=== PATIENT | male | born 1955 | race Caucasian/White ===

== ENCOUNTER 2020-12-13 15:26 | Outpatient (CLI) | payer MEDICARE, SELFPAY ==
--- NOTE | 2020-12-13 15:34 | XR_ITS ---
WS: [id number] XR chest 2V* [id number] REASON FOR EXAM: cough rule out pneumonia FINDINGS: Previous sternotomy and coronary artery bypass surgery. The aorta is unremarkable. Heart size is normal. Calcified granulomatous changes in both hemithoraces. Slightly asymmetric apical pleural thickening. No active pulmonary parenchymal or pleural disease. The hemidiaphragms are flattened which may indicate an element of obstructive lung disease. Mild degenerative spondylosis in the mid and lower thoracic spine. XR/XR chest 2V* [id number] IMPRESSION: Status post coronary bypass surgery. No acute abnormality. Possible obstructive lung disease.
== END 2020-12-13 15:27 | disposition home or self-care (01) ==
LOC: RAD 15:31
PROVIDERS: PCP Physician Assistant; Visit Provider Internal Medicine Pulmonary Disease
DX: R05 Cough (principal); Z95.1 Presence of aortocoronary bypass graft
CPT/HCPCS: 71046

== ENCOUNTER → 2021-01-18 13:31 | Outpatient (BNVA) | payer MEDICARE, SELFPAY | PROVIDERS: PCP Physician Assistant; Visit Provider Internal Medicine Pulmonary Disease | DX: Z01.812 Encounter for preprocedural laboratory examination (principal); Z20.822 Contact with and (suspected) exposure to COVID-19 | CPT/HCPCS: 87635 ==

== ENCOUNTER 2021-02-01 09:27 | Outpatient (CLI) | payer MEDICARE, SELFPAY ==
--- NOTE | 2021-02-01 09:38 | CT_ITS ---
WS: [id number] CT CHEST WITHOUT INTRAVENOUS CONTRAST HISTORY: follow up on bilateral pulmonary nodules in chronic smoker TECHNIQUE: Contiguous 5 mm axial imaging performed on the thorax. Coronal and sagittal reformats are submitted. [facility] use at least one of these dose optimization techniques: automated exposure control; mA and/or kV adjustment per patient size (includes targeted exams where dose is matched to clinical indication); or iterative reconstruction. CONTRAST: None DLP: 907.25 mGycm COMPARISON: 12/13/2020 Lungs and central airway: Horizontal scar in the RIGHT upper lobe. There is a pleural-based 5 mm nodu le in the superior posterior RIGHT lower lobe. No additional nodules or masses. Pleura: Mild pleural thickening at the RIGHT costophrenic angle. Heart and pericardium: Prior CABG. Heart size is normal. No pericardial effusion. Mediastinum and mac: No mediastinum or hilar adenopathy. Vessels: Mild atherosclerosis aorta with no aneurysm. LEFT vertebral artery arises directly from the aorta. Normal size pulmonary artery. Chest wall and lower neck: Prior CABG. Upper abdomen: Mild perinephric stranding. Hepatic steatosis. Osseous structures: Moderate thoracic spondylosis. CT/CT chest wo con [id number] IMPRESSION: 1. No pulmonary mass or pneumonia. 2. Focal scarring at the RIGHT lung base resulting in blunting of the costophr enic angle. 3. 5 mm noncalcified pulmonary nodule in the superior segment RIGHT lower lobe . Indeterminate solid pulmonary nodule measuring less than 6 mm. In a low-risk patient with a solid nodule <6 mm, recommend no follow-up. In a high-risk patie nt, CT at 12 months is optional with stronger consideration if there is suspici ous nodule morphology and/or upper lobe location. Ellie H, et al. Guidelines for Management of Incidental Pulmonary Nodules De tected on CT Images: From the Fleischner Society 2017. Radiology. 2017 Ed;284( 1):228-243.
== END 2021-02-01 09:28 | disposition home or self-care (01) ==
PROVIDERS: PCP Physician Assistant; Visit Provider Internal Medicine Pulmonary Disease
DX: R91.8 Other nonspecific abnormal finding of lung field (principal); F17.210 Nicotine dependence, cigarettes, uncomplicated
CPT/HCPCS: 71250

== ENCOUNTER → 2021-02-02 11:06 | Outpatient (BNVA) | payer MEDICARE, SELFPAY | PROVIDERS: PCP Physician Assistant; Visit Provider Internal Medicine Pulmonary Disease | DX: Z20.822 Contact with and (suspected) exposure to COVID-19 (principal); Z01.812 Encounter for preprocedural laboratory examination | CPT/HCPCS: 87635 ==

== ENCOUNTER 2021-02-08 10:10 | Outpatient (CLI) | payer MEDICARE, SELFPAY ==
--- NOTE | 2021-02-08 13:46 | PFTS_ITS ---
Date of Study:02/08/21 Date of Dictation: MECHANICS: Forced vital capacity (FVC) is reduced. Forced expiratory volume in one second (FEV1) is reduced. FEV1/FVC is reduced. FLOW VOLUME LOOP: Reduced flow at all lung volumes with scooping. LUNG VOLUMES: Total lung capacity (TLC) is normal. Residual volume (RV) is increased. DIFFUSING CAPACITY FOR CARBON MONOXIDE: Moderately reduced. INTERPRETATION: The pulmonary function tests are consistent with severe airflow obstruction. There is no significant postbronchodilator response. Lung volumes are consistent with air trapping. Gas exchange (DLCO) is moderately reduced. MTDD
== END 2021-02-08 10:11 | disposition home or self-care (01) ==
LOC: RT 10:12
PROVIDERS: PCP Physician Assistant; Visit Provider Internal Medicine Pulmonary Disease
DX: R91.8 Other nonspecific abnormal finding of lung field (principal); J44.9 Chronic obstructive pulmonary disease, unspecified
CPT/HCPCS: 94060; 94618; 94726; 94729; J7611

== ENCOUNTER → 2022-10-31 09:01 | Outpatient (BNVA) | payer OTHER, SELFPAY | PROVIDERS: PCP Nurse Practitioner Family; Referring Provider Nurse Practitioner Family; Visit Provider Psychiatry & Neurology Neurology | DX: G25.0 Essential tremor; I25.10 Atherosclerotic heart disease of native coronary artery without angina pectoris; Z95.5 Presence of coronary angioplasty implant and graft; J44.9 Chronic obstructive pulmonary disease, unspecified; F17.210 Nicotine dependence, cigarettes, uncomplicated; G47.33 Obstructive sleep apnea (adult) (pediatric) | CPT/HCPCS: 99203 ==

== ENCOUNTER → 2022-10-31 09:01 | Outpatient (BNVA) | payer OTHER, SELFPAY | PROVIDERS: PCP Nurse Practitioner Family; Referring Provider Nurse Practitioner Family; Visit Provider Psychiatry & Neurology Neurology | DX: R25.1 Tremor, unspecified (principal); E05.00 Thyrotoxicosis with diffuse goiter without thyrotoxic crisis or storm; G25.0 Essential tremor; Z79.899 Other long term (current) drug therapy | CPT/HCPCS: 80184; 82306; 82607; 82746; 83735; 83921 ==

== ENCOUNTER 2022-11-22 14:22 | Outpatient (CLI) | payer OTHER, SELFPAY ==
--- NOTE | 2022-11-22 15:15 | MR_ITS ---
WS: [id number] MRI BRAIN WITHOUT CONTRAST HISTORY: R25.1 - Tremor, unspecified COMPARISON: None available. TECHNIQUE: Diffusion imaging, multiplanar T1, T2 and FLAIR imaging obtained. No evidence for acute infarct or hemorrhage. Nation-white matter differentiation is normal. Mild bilateral symmetric atrophy. No significant small vessel ischemic disease or prior infarct. Symm etric hippocampal formations with no atrophy. Ventricles and extra-axial spaces are normal. No inferior displacement of cerebellar tonsils. The sella turcica and pituitary gland are unremarkabl e. Dural venous sinuses and [place] demonstrate no abnormality on this unenhanced studies. Paranasal sinuses: Clear. Mastoid air cells: Normal. Calvarium and scalp: Intact. IMPRESSION: 1. No acute diffusion abnormalities. No significant small vessel ischemic disease. 2. Mild bilateral symmetric cerebral atrophy. 3. Normal hippocampal formations.
== END 2022-11-22 14:23 | disposition home or self-care (01) ==
PROVIDERS: PCP Nurse Practitioner Family; Visit Provider Psychiatry & Neurology Neurology
DX: R25.1 Tremor, unspecified (principal)
CPT/HCPCS: 70551; 80184; 82306; 82607; 82746; 83735; 83921

== ENCOUNTER → 2022-12-31 13:06 | Outpatient (BNVA) | payer OTHER, SELFPAY | PROVIDERS: PCP Nurse Practitioner Family; Visit Provider Psychiatry & Neurology Neurology | DX: G25.0 Essential tremor (principal) | CPT/HCPCS: 99212 ==

== ENCOUNTER → 2023-01-08 11:35 | Outpatient (BNVA) | payer OTHER, SELFPAY | PROVIDERS: PCP Nurse Practitioner Family; Visit Provider Internal Medicine | DX: E05.00 Thyrotoxicosis with diffuse goiter without thyrotoxic crisis or storm (principal); R19.7 Diarrhea, unspecified; G25.0 Essential tremor | CPT/HCPCS: 36415; 84439; 84443; 84480; 85025; 99204 ==

== ENCOUNTER → 2023-12-18 15:19 | Outpatient (BNVA) | payer OTHER, SELFPAY | PROVIDERS: PCP Nurse Practitioner Family; Visit Provider Psychiatry & Neurology Neurology | DX: G25.0 Essential tremor (principal) | CPT/HCPCS: 99212; 99213 ==

== ENCOUNTER → 2024-04-13 14:38 | Outpatient (BNVA) | payer OTHER, SELFPAY | PROVIDERS: PCP Nurse Practitioner Family; Visit Provider Psychiatry & Neurology Neurology | DX: G25.0 Essential tremor (principal) | CPT/HCPCS: 99212 ==